=== PATIENT | male | born 1950 | race Caucasian/White ===

== ENCOUNTER → 2017-06-26 | Outpatient (CLI) | payer OTHER ==
[2017-06-26 13:26] LABS: BASO % 0.6 %; BASO ABS # 0.04 K/uL (0-0.2); COMPLETE YES; EOS % 6.3 %; HEMATOCRIT 43.2 % (42-52); IG% 0.4 %; LYMPH % 23.6 %; LYMPH ABS # 1.61 K/uL (1.2-3.4); MEAN CELL VOLUME 86.4 fL (80-100); MEAN CORPUSCULAR HGB CONC 34.7 g/dl (32-36); MEAN PLATELET VOLUME 10.5 fL (7.4-10.4); MONO % 10.1 %; PLATELET COUNT 203 K/uL (130-400); WHITE BLOOD COUNT 6.82 K/uL (4.8-10.8)
[2017-06-26 13:58] LABS: ALT/SGPT 28 U/L (12-78); BLOOD UREA NITROGEN 25 mg/dl (7-18); BUN/CREATININE RATIO 20.7 (10-20); CALCIUM 9.2 mg/dl (8.5-10.1); CARBON DIOXIDE 26 mmol/L (21-32); CHLORIDE 106 mmol/L (98-107); CHOLESTEROL 175 mg/dl (0-200); GLUCOSE 93 mg/dl (70-99); POTASSIUM 4.3 mmol/L (3.5-5.1); SODIUM 139 mmol/L (136-145); TRIGLYCERIDES 141 mg/dl (0-150); VERY LOW DENSITY LIPOPROT CALC 28 mg/dl
[2017-06-26 14:10] LABS: ALB/GLOB RATIO 0.9 (0.9-2); ALKALINE PHOSPHATASE 64 U/L (45-117); AST/SGOT 23 U/L (15-37); HDL CHOLESTEROL 44 mg/dl; LDL CHOLESTEROL CALCULATED 103 mg/dl; PROSTATE SPECIFIC ANTIGEN 0.645 ng/ml (0.000-4.000)
--- NOTE | 2017-07-06 09:41 | CODING QUERY MEDICAL NECESSITY ---
SUPPORTING DIAGNOSIS NEEDED Dr. Davenport, A supporting diagnosis is required for the test/procedure performed on this patient in order for us to be reimbursed by the patient's insurance. Please provide a supporting diagnosis for the following test/procedure listed below next to the test name along with your signature. *If there is no additional diagnosis for this patient that would support the following test/procedure please document that below next to the test/procedure. Test(s)/Procedure(s) that require a supporting diagnosis: * 33130 PSA DIAGNOSIS: DATE OF SERVICE: 06/26/17 Provider Signature: Date: Thank you See [facility] Information Management Once completed, please kindly fax back to [phone] For questions please call [phone]
== END | disposition home or self-care (01) ==
LOC: C.LABBC 10:56
PROVIDERS: ATTEND Internal Medicine
DX: Z87.09 Personal history of other diseases of the respiratory system (principal); N40.1 Benign prostatic hyperplasia with lower urinary tract symptoms; N50.9 Disorder of male genital organs, unspecified

== ENCOUNTER → 2017-11-26 | Outpatient (CLI) | payer OTHER ==
[~2017-11-26] MED LIST: FUROSEMIDE INJ 10 MG/ML 2 ML VIAL IV ONE
--- NOTE | 2017-11-26 11:27 | DIAGNOSTIC IMAGING REPORT ---
NUCLEAR MEDICINE MAG3 RENAL DIURETIC SCAN CLINICAL HISTORY: N13.30 hydronephrosis COMPARISON STUDY: No previous studies for comparison. FINDINGS: The patient was injected with 8.4 mCi of technetium 99m MAG3. The flow was relatively symmetric. Split renal function was 56.5% on the left and 43.5% of the right On the right, the time of maximal activity was 3 minutes. There is flat excretory curve. At 20 minutes, the patient was administered 20 mg of intravenous furosemide. There was no Lasix response. On the left, the time to maximal activity was 5 minutes. The time to half maximum was slightly prolonged measuring 20 minutes. There are no findings to indicate obstruction on the left. Camera images demonstrate a dilated right renal collecting system. IMPRESSION: 1. Right renal obstruction with suspected marked hydronephrosis. No Lasix response. 2. Split renal function of 56.5% on the left and 43.5% of the right Electronically signed by: Edwardo Chairez M.D. 11/26/2017 11:26 AM Dictated Date/Time: 11/26/2017 11:20 AM
== END | disposition home or self-care (01) ==
LOC: C.NUCL 09:42
PROVIDERS: ATTEND Urology
DX: N13.30 Unspecified hydronephrosis (principal)

== ENCOUNTER → 2018-01-05 | Day surgery (SDC) | payer OTHER ==
[2017-12-23 09:46] VITALS: BMI 33.0
--- NOTE | 2017-12-23 10:16 | PAT Medication Instructions ---
Service Date Dec 23, 2017. Current Home Medication List Dicyclomine Hcl (Dicyclomine Hcl), 1 CAP PO BID Fish Oil (Morrow-3), 1 CAP PO BID Naproxen (Aleve), 220 MG PO PRN Resveratrol (Resveratrol), 100 MG PO QAM [Gingko Biloba], 1 TAB PO QAM [Phosphatildaserine], 100 MG PO BID [Vitamin B12], 1 TAB PO QAM Medication Instructions For Your Scheduled Surgery -Contact your surgeon for instructions if you plan on taking: Naproxen (Aleve), 220 MG PO PRN - Hold the following medications 2 weeks prior to surgery: Fish Oil (Morrow-3), 1 CAP PO BID [Gingko Biloba], 1 TAB PO QAM [Phosphatildaserine], 100 MG PO BID Resveratrol (Resveratrol), 100 MG PO QAM - Hold the following medications the morning of surgery: Dicyclomine Hcl (Dicyclomine Hcl), 1 CAP PO BID [Vitamin B12], 1 TAB PO QAM - Take the following medications as scheduled the night before surgery: Dicyclomine Hcl (Dicyclomine Hcl), 1 CAP PO BID If you have any questions please call us at [phone] or [phone] or [phone]
--- NOTE | 2017-12-23 10:58 | DIAGNOSTIC IMAGING REPORT ---
CHEST 2 VIEWS ROUTINE CLINICAL HISTORY: Preoperative chest COMPARISON STUDY: No previous studies for comparison. FINDINGS: The cardiac and mediastinal contours are normal. There is no evidence of focal pulmonary consolidation. There is no evidence of failure. No pleural effusions are visualized.[ There is a linear area of subsegmental atelectasis/scarring within the lingula. IMPRESSION: Lingular atelectasis/scarring. Otherwise negative chest. Electronically signed by: Edwardo Chairez M.D. 12/23/2017 10:57 AM Dictated Date/Time: 12/23/2017 10:56 AM
[2017-12-23 11:00] LABS: BASO % 1.1 %; BASO ABS # 0.07 K/uL (0-0.2); EOS % 5.6 %; EOS ABS # 0.37 K/uL (0-0.5); HEMATOCRIT 41.9 % (42-52); IG# 0.01 K/uL (0.00-0.02); LYMPH ABS # 1.57 K/uL (1.2-3.4); MEAN CELL VOLUME 84.6 fL (80-100); MEAN CORPUSCULAR HEMOGLOBIN 30.3 pg (25-34); MEAN CORPUSCULAR HGB CONC 35.8 g/dl (32-36); MEAN PLATELET VOLUME 10.2 fL (7.4-10.4); MONO % 12.4 %; MONO ABS # 0.81 K/uL (0.11-0.59); NEUT % 56.7 %; NEUT ABS # 3.72 K/uL (1.4-6.5); PLATELET COUNT 184 K/uL (130-400); RED CELL DISTRIBUTION WIDTH CV 13.1 % (11.5-14.5); WHITE BLOOD COUNT 6.55 K/uL (4.8-10.8)
[2017-12-23 12:21] LABS: CALCIUM 9.6 mg/dl (8.5-10.1); CREATININE 1.06 mg/dl (0.60-1.40); POTASSIUM 4.2 mmol/L (3.5-5.1)
[~2018-01-05] VITALS: Ht 170.2 cm; Wt 97.7 kg
[~2018-01-05] MED LIST changes: +ACETAMINOPHEN 325 MG TAB PO PRN; +ATROPINE SULFATE 0.1 MG/ML 5ML SYR IV PRN; +BACITRACIN OINT 15 GM TUBE ONE; +BUPIVACAINE 0.5 % 5 MG/1 ML MPF 30ML VIAL ONE; +CEFAZOLIN 2000MG IV PUSH 15 ML IV SCH; +DEXAMETHASONE SOD INJ 4 MG/ML VIAL ONE; +DICY10CA12 PO; +EpHEDrine SULFATE 50MG/5ML SYR ONE; +EpHEDrine SULFATE INJ 50 MG/ML AMP IV PRN; +FENTANYL CITRATE INJ 50 MCG/1 ML 2 ML VIAL IV PRN; +FENTANYL CITRATE INJ 50 MCG/1 ML 2 ML VIAL ONE; -FUROSEMIDE INJ 10 MG/ML 2 ML VIAL IV ONE; +GINGKO BILOBA PO; +HYDR-5688 PO; +LACTATED RINGER'S 1000ML 1,000 ML IV SCH; +LIDOCAINE HCL 2% 2 ML VIAL (20MG/ML) ONE; +MIDAZOLAM HCL 1 MG/ML 2ML VIAL ONE; +NAPR1TAB9 PO; +OMEG10007 PO; +ONDANSETRON INJ 2 MG/ML 2 ML VIAL IV PRN; +ONDANSETRON INJ 2 MG/ML 2 ML VIAL ONE; +OXYCODONE/ACETAMINOPHEN 5-325 TAB PO PRN; +PROPOFOL IV EMULSION 10 MG/ML 20 ML VIAL IV ONE; +RESV100C PO; +SODIUM CHLORIDE 0.9% 1000ML 1,000 ML IV SCH; +VITAMIN B12 PO; +[UNRECOGNIZED DRUG - OTHER] PO
[2018-01-05 07:14] VITALS: BP 199/89; PULSE 83; TEMP 37.2; O2SAT 95; Ht 170.2 cm; Wt 97.7 kg
--- NOTE | 2018-01-05 08:32 | History & Physical Bridge Note ---
H&P Re-Evaluation Bridge Note: I have examined the patient, reviewed the History & Physical and in the interval since the performance of the History & Physical I have noted the following changes of clinical significance: No changes noted
--- NOTE | 2018-01-05 09:56 | [facility] Post Operative Brief Note ---
Immediate Operative Summary Operative Date Jan 05, 2018. Pre-Operative Diagnosis Right Hydrocele Post-Operative Diagnosis Right Hydrocele Procedure(s) Performed Right Hydrocelectomy Surgeon Dr. Landin Nursing Consultant Surgeon(s) none Estimated Blood Loss 5 ml Findings Consistent with Post-Op Diagnosis Specimens A. Right Hydrocele Sac Drains anthony Anesthesia Type General Complication(s) none Disposition Accompanied Pt To Recover: yes Disposition: Recovery Room / PACU
--- NOTE | 2018-01-05 10:05 | Discharge Instructions ---
Discharge Instructions Date of Service Jan 05, 2018. Admission Reason for Admission: Hydrocele Discharge Discharge Diagnosis / Problem: Hydrocele Discharge Goals Goal(s): Decrease discomfort, Improve function, Increase independence, Improve disease control Activity Recommendations Activity Limitations: per Instructions/Follow-up section Lifting Limitations: no more than 25 pounds (for 1-2 weeks) Exercise/Sports Limitations: gradually increase as tolerated May Resume Sexual Activity: when tolerated Shower/Bathe: tomorrow Driving or Machine Use: resume 1 day after discharge . Instructions / Follow-Up Instructions / Follow-Up Please keep your appointment for drain removal later this week. Please change the dressing around the drain as needed. Please apply bacitracin ointment to the incision 2-3 times per day for the first week of recovery Current Hospital Diet Patient's current hospital diet: Discharge Diet Recommended Diet: Regular Diet Procedures Procedures Performed: Right Hydrocelectomy Pending Studies Studies pending at discharge: no Medical Emergencies . Who to Call and When: Medical Emergencies: If at any time you feel your situation is an emergency, please call 911 immediately. . Non-Emergent Contact Non-Emergency issues call your: Urologist Call Non-Emergent contact if: you have a fever, temperature is above 101.5, your pain is not controlled, your pain is worsening . . "Provider Documentation" section prepared by Сергей Clark. . [place] Drug Monitoring Program Search Results: no issues identified
--- NOTE | 2018-01-05 10:28 | [facility] Operative Report ---
Operative Report Operative Date Jan 05, 2018. Pre-Operative Diagnosis Right Hydrocele Post-Operative Diagnosis Right Hydrocele Procedure(s) Performed Right Hydrocelectomy Surgeon Dr. Landin Road Builder Surgeon(s) none Estimated Blood Loss 5 ml Findings simple right hydrocele Specimens A. Right Hydrocele Sac Drains anthony Anesthesia Type General Complication(s) none Disposition yes Recovery Room / PACU Description of Procedure Patient was identified in the preoperative holding area, appropriate informed consents reviewed and completed and the patient was transported to the operating suite. Upon arrival he received appropriate preoperative antibiotics in the form of Ancef. Adequate general anesthesia was achieved, and he was placed in supine position where he was sterilely prepped and draped in standard fashion. A midline raphae incision of approximately 5 cm was marked on the scrotum. After incising through the skin, I carefully worked my way through dartos fascia utilizing a combination of sharp dissection and Bovie electrocautery. I skeletonized the anterior surface of the hydrocele and tunica vaginalis before delivering it through the incision. I then completed my skeletonization of tunica vaginalis with excellent hemostasis. The tunica vaginalis was incised on its anterior surface and approximately 500 cc of yellow appearing fluid was drained. I then opened the sac longitudinally and inspected internally. There were no abnormalities appreciated. I excised the redundant sac from the left and the right before oversewing the cut edge utilizing a 3-0 Vicryl suture in running fashion. After obtaining meticulous hemostasis, a Anthony drain was placed in the dependent portion of the scrotum and sutured in place utilizing the same 3-0 Vicryl suture. Dartos fascia was reapproximated using a 3-0 Vicryl. I infiltrated these tissues utilizing 0.5% Marcaine before closing the skin with vertical mattress 3-0 chromic sutures. The wound was dressed with bacitracin, fluffs, and a scrotal support. There was excellent hemostasis, and the patient tolerated the procedure extremely well. He was taken to the PACU in stable condition. I attest to the content of the Intraoperative Record and any orders documented therein. Any exceptions are noted below.
--- NOTE | 2018-01-05 10:48 | Anesthesiology Progress Note ---
Anesthesia Post Op Note Date & Time Jan 05, 2018 at 10:48 Vital Signs Pain Intensity: 4 Vital Signs Past 12 Hours Date Time Temp Pulse Resp B/P (MAP) Pulse Ox O2 Delivery O2 Flow Rate FiO2 01/05/18 10:35 71 17 155/88 94 Room Air 01/05/18 10:25 36.8 68 16 143/89 93 Room Air 01/05/18 10:15 80 16 138/77 94 Oxymask 10 01/05/18 10:06 82 16 125/83 97 Oxymask 10 01/05/18 09:59 36.2 76 16 152/79 96 Oxymask 10 01/05/18 07:14 37.2 83 20 199/89 (125) 95 Room Air Notes Mental Status: alert / awake / arousable, participated in evaluation Pt Amnestic to Procedure: Yes Nausea / Vomiting: adequately controlled Pain: adequately controlled Airway Patency, RR, SpO2: stable & adequate BP & HR: stable & adequate Hydration State: stable & adequate Anesthetic Complications: no major complications apparent
[2018-01-05 10:50] VITALS: BP 163/80; PULSE 67; TEMP 36.7; O2SAT 97
[2018-01-05 11:20] VITALS: BP 151/73; PULSE 75; O2SAT 95
[2018-01-05 11:40] VITALS: BP 161/82; PULSE 74; TEMP 36.6; O2SAT 96
== END | disposition home or self-care (01) ==
LOC: C.ACU 06:57
PROVIDERS: ATTEND Urology
DX: N43.3 Hydrocele, unspecified (principal); N40.1 Benign prostatic hyperplasia with lower urinary tract symptoms; N13.30 Unspecified hydronephrosis; M19.90 Unspecified osteoarthritis, unspecified site; E66.9 Obesity, unspecified; G47.33 Obstructive sleep apnea (adult) (pediatric); Z85.048 Personal history of other malignant neoplasm of rectum, rectosigmoid junction, and anus; Z90.89 Acquired absence of other organs; Z83.79 Family history of other diseases of the digestive system; Z82.49 Family history of ischemic heart disease and other diseases of the circulatory system; Z83.3 Family history of diabetes mellitus; Z80.41 Family history of malignant neoplasm of ovary; Z87.891 Personal history of nicotine dependence; Z88.6 Allergy status to analgesic agent

== ENCOUNTER 2019-01-31 14:56 | Observation (INO) ==
--- NOTE | 2019-01-31 15:41 | Emergency Department Note ---
History of Present Illness General Chief complaint: Chest Pain Stated complaint: CHEST/NECK PAIN PAST 5 DAYS Time Seen by Provider: 01/31/19 15:11 History of Present Illness Maximum Pain Intensity: 0 This is a 68-year-old male that presents to the emergency department via private vehicle accompanied by male with complaints of "chest/neck pain past 5 days". The patient notes that this past Thursday he was at work not exerting himself talking with people when he began with pain in the right side of the inferior neck and superior right chest. He notes that sometimes when he bends down it worsens or moves his arms but notes that it is not always reproducible nor is it predictable. He notes that it is intermittent. He also notes pain in the substernal region that is sometimes worse with palpation. He notes a very strong family history of [place], noting that his father from an [place] at age 54 and his grandfather also had similar history. He notes he has no personal history of [place] or PE. No identified medical problems. He notes that when the pain strikes it is a 4/10 and he is not really sure if it sharp or dull he notes it just hurts in that region. He has a history of rectal cancer in 1999. He denies any fevers, chills, abdominal pain. Home Medications Home Medications Medication Instructions Recorded Confirmed Type calcium polycarbophil [FiberCon] 1,250 mg PO BID 01/31/19 01/31/19 History dicyclomine 10 mg PO BID 01/31/19 01/31/19 History omega [id number]-fish oil [Medford-3] 1 cap PO BID 01/31/19 01/31/19 History Allergies Allergy/AdvReac Type Severity Reaction Status Date / Time aspirin Allergy Unknown WHITE EYES Verified 01/05/18 07:08 TURNED RED Past Med/Surg History Medical History History of rectal cancer Surgical History History of rectal surgery Family History Father , At age 54 from [place] No problems noted. Social History Feels Safe at Home: Yes Smoking Status: Former smoker Review of Systems A total of 10 systems reviewed and were otherwise negative Physical Exam Vital Signs Vital Signs - 24 hr 01/31/19 15:01 01/31/19 15:24 01/31/19 15:30 Temperature 36.8 C Temperature Source Oral Sepsis Recent Fever Within 48 Hours No Sepsis Action Taken by Nursing No Action Required Pulse Rate 67 66 72 Pulse Rate from SpO2 Sensor Respiratory Rate 18 21 20 Blood Pressure 225/112 H Blood Pressure Mean 149 Pulse Oximetry 96 Oxygen Delivery Method Room Air 01/31/19 15:40 01/31/19 15:50 01/31/19 15:51 Temperature Temperature Source Sepsis Recent Fever Within 48 Hours Sepsis Action Taken by Nursing Pulse Rate 70 65 Pulse Rate from SpO2 Sensor Respiratory Rate 16 16 Blood Pressure Blood Pressure Mean Pulse Oximetry 97 Oxygen Delivery Method Room Air 01/31/19 15:52 01/31/19 16:00 01/31/19 16:01 Temperature Temperature Source Sepsis Recent Fever Within 48 Hours Sepsis Action Taken by Nursing Pulse Rate 70 69 69 Pulse Rate from SpO2 Sensor 69 70 70 Respiratory Rate 22 16 21 Blood Pressure 168/99 H 167/91 H Blood Pressure Mean 122 116 Pulse Oximetry 96 96 93 Oxygen Delivery Method 01/31/19 16:10 01/31/19 16:20 01/31/19 16:30 Temperature Temperature Source Sepsis Recent Fever Within 48 Hours Sepsis Action Taken by Nursing Pulse Rate 68 68 66 Pulse Rate from SpO2 Sensor 69 69 67 Respiratory Rate 13 21 16 Blood Pressure Blood Pressure Mean Pulse Oximetry 96 96 96 Oxygen Delivery Method 01/31/19 16:31 01/31/19 16:40 01/31/19 16:50 Temperature Temperature Source Sepsis Recent Fever Within 48 Hours Sepsis Action Taken by Nursing Pulse Rate 69 63 66 Pulse Rate from SpO2 Sensor 67 63 66 Respiratory Rate 12 18 16 Blood Pressure 154/88 H Blood Pressure Mean 110 Pulse Oximetry 95 96 96 Oxygen Delivery Method 01/31/19 17:00 01/31/19 17:01 01/31/19 17:10 Temperature Temperature Source Sepsis Recent Fever Within 48 Hours Sepsis Action Taken by Nursing Pulse Rate 69 69 66 Pulse Rate from SpO2 Sensor 66 Respiratory Rate 19 16 22 Blood Pressure 159/102 H Blood Pressure Mean 121 Pulse Oximetry 96 Oxygen Delivery Method 01/31/19 17:20 01/31/19 17:30 01/31/19 17:31 Temperature Temperature Source Sepsis Recent Fever Within 48 Hours Sepsis Action Taken by Nursing Pulse Rate 67 68 65 Pulse Rate from SpO2 Sensor 66 66 65 Respiratory Rate 22 22 17 Blood Pressure 172/108 H Blood Pressure Mean 129 Pulse Oximetry 96 96 96 Oxygen Delivery Method 01/31/19 17:40 01/31/19 17:50 01/31/19 18:00 Temperature Temperature Source Sepsis Recent Fever Within 48 Hours Sepsis Action Taken by Nursing Pulse Rate 68 68 70 Pulse Rate from SpO2 Sensor 67 67 69 Respiratory Rate 20 23 17 Blood Pressure Blood Pressure Mean Pulse Oximetry 96 97 96 Oxygen Delivery Method 01/31/19 18:01 01/31/19 18:10 01/31/19 18:20 Temperature Temperature Source Sepsis Recent Fever Within 48 Hours Sepsis Action Taken by Nursing Pulse Rate 65 65 68 Pulse Rate from SpO2 Sensor 64 65 67 Respiratory Rate 16 20 14 Blood Pressure 168/103 H Blood Pressure Mean 124 Pulse Oximetry 96 96 95 Oxygen Delivery Method 01/31/19 18:30 01/31/19 18:31 01/31/19 18:40 Temperature Temperature Source Sepsis Recent Fever Within 48 Hours Sepsis Action Taken by Nursing Pulse Rate 63 63 61 Pulse Rate from SpO2 Sensor 63 61 62 Respiratory Rate 19 22 20 Blood Pressure 179/102 H Blood Pressure Mean 127 Pulse Oximetry 96 97 95 Oxygen Delivery Method 01/31/19 18:50 Temperature Temperature Source Sepsis Recent Fever Within 48 Hours Sepsis Action Taken by Nursing Pulse Rate 64 Pulse Rate from SpO2 Sensor 63 Respiratory Rate 20 Blood Pressure Blood Pressure Mean Pulse Oximetry 96 Oxygen Delivery Method VITAL SIGNS - Vital signs and nursing notes were reviewed. Hypertensive, afebrile. GENERAL - 68-year-old male appearing his stated age who is in no acute distress. Communicates well with provider and answers questions appropriately. SKIN - Without rashes. No meningeal or petechial rash. HEAD - NC/AT. EYES - PERRL with EOMI bilaterally. Sclera anicteric. EARS - No deformities of external structures noted on gross examination bilaterally. NOSE - Midline and without cyanosis. No epistaxis or purulent drainage noted. MOUTH/OROPHARYNX - Without perioral cyanosis. NECK - Neck with FROM. Supple to palpation. No lymphadenopathy noted. No nuchal rigidity. LUNGS - Chest wall symmetric without accessory muscle use, intercostals retractions, or central cyanosis. Normal vesicular breath sounds CTA B/L. No wheezes, rales, or rhonchi appreciated. CARDIAC - RRR with S1/S2. No murmur, rubs, or gallops appreciated. ABDOMEN - Abdominal contour normal without pulsations or visible masses. BS normoactive all four quadrants. No tenderness, palpable masses, hepatosplenomegaly, or ascites noted. EXTREMITIES - No clubbing or peripheral cyanosis. No pretibial edema present. +5/5 strength noted in UE/LE bilaterally. NEUROLOGIC - Cranial nerves II through XII grossly intact. Sensory intact to light touch throughout. PSYCH - A&Ox3 and cooperates fully with examiner. Pt is very pleasant and interacts well with examiner. Medical Decision Making Laboratory Data Result diagrams: 01/31/19 15:57 01/31/19 15:57 Lab Results 01/31/19 01/31/19 01/31/19 Range/Units 15:57 15:57 15:57 WBC 4.91 (4.8-10.8) K/uL RBC 4.96 (4.7-6.1) M/uL Hgb 14.8 (14.0-18.0) g/dL Hct 42.3 (42-52) % MCV 85.3 (80-100) fL MCH 29.8 (25-34) pg MCHC 35.0 (32-36) g/dL RDW Std Deviation 40.8 (36.4-46.3) fL RDW Coeff of Rosalba 13.2 (11.5-14.5) % Plt Count 172 (130-400) K/uL MPV 10.3 (7.4-10.4) fL Immature Gran % (Auto) 0.2 % Neut % (Auto) 47.1 % Lymph % (Auto) 24.0 % [place] % (Auto) 22.4 % Eos % (Auto) 5.5 % Baso % (Auto) 0.8 % Immature Gran # (Auto) 0.01 (0.00-0.02) K/uL Neut # (Auto) 2.31 (1.4-6.5) K/uL Lymph # (Auto) 1.18 L (1.2-3.4) K/uL [place] # (Auto) 1.10 H (0.11-0.59) K/uL Eos # (Auto) 0.27 (0-0.5) K/uL Baso # (Auto) 0.04 (0-0.2) K/uL PT 10.8 (9.0-12.0) Seconds INR 1.1 (0.9-1.1) APTT 26.8 (21.0-31.0) Seconds PTT Ratio 1.0 Sodium 135 L (136-145) mmol/L Potassium 3.7 (3.5-5.1) mmol/L Chloride 107 (98-107) mmol/L Carbon Dioxide 25 (21-32) mmol/L Anion Gap 3.0 (3-11) BUN 21 H (7-18) mg/dl Creatinine 1.01 (0.6-1.4) mg/dl Est Cr Clr Drug Dosing 80.9 ml/min Est GFR ( Amer) 88.2 Est GFR (Non-Af Amer) 76.1 BUN/Creatinine Ratio 21.0 H (10-20) Glucose 87 (70-99) mg/dl Calcium 8.8 (8.5-10.1) mg/dl Magnesium 2.0 (1.8-2.4) mg/dl Total Bilirubin 0.4 (0.2-1) mg/dl AST 32 (15-37) U/L ALT 59 (12-78) U/L Alkaline Phosphatase 72 (45-117) U/L Troponin I < 0.015 (0-0.045) ng/ml Total Protein 8.2 (6.4-8.2) gm/dl Albumin 3.5 (3.4-5.0) gm/dl Globulin 4.7 H (2.5-4.0) gm/dl Albumin/Globulin Ratio 0.7 L (0.9-2) Lipase 116 (73-393) U/L TSH 1.600 (0.300-4.500) uIu/ml Urine Color Urine Appearance (Clear) Urine pH (4.5-7.5) Ur Specific Leakey (1.000-1.030) Urine Protein (Negative) Urine Glucose (UA) (Negative) Urine Ketones (Negative) Urine Blood (Negative) Urine Nitrite (Negative) Urine Bilirubin (Negative) Urine Urobilinogen (Negative) Ur Leukocyte Esterase (Negative) Urine WBC (Auto) (0-5) /hpf Urine RBC (Auto) (0-4) /hpf U Hyaline Cast (Auto) (0-5) /lpf U Epithel Cells (Auto) (0-5) /lpf Urine Bacteria (Auto) (Negative) 01/31/19 Range/Units 15:57 WBC (4.8-10.8) K/uL RBC (4.7-6.1) M/uL Hgb (14.0-18.0) g/dL Hct (42-52) % MCV (80-100) fL MCH (25-34) pg MCHC (32-36) g/dL RDW Std Deviation (36.4-46.3) fL RDW Coeff of Rosalba (11.5-14.5) % Plt Count (130-400) K/uL MPV (7.4-10.4) fL Immature Gran % (Auto) % Neut % (Auto) % Lymph % (Auto) % [place] % (Auto) % Eos % (Auto) % Baso % (Auto) % Immature Gran # (Auto) (0.00-0.02) K/uL Neut # (Auto) (1.4-6.5) K/uL Lymph # (Auto) (1.2-3.4) K/uL [place] # (Auto) (0.11-0.59) K/uL Eos # (Auto) (0-0.5) K/uL Baso # (Auto) (0-0.2) K/uL PT (9.0-12.0) Seconds INR (0.9-1.1) APTT (21.0-31.0) Seconds PTT Ratio Sodium (136-145) mmol/L Potassium (3.5-5.1) mmol/L Chloride (98-107) mmol/L Carbon Dioxide (21-32) mmol/L Anion Gap (3-11) BUN (7-18) mg/dl Creatinine (0.6-1.4) mg/dl Est Cr Clr Drug Dosing ml/min Est GFR ( Amer) Est GFR (Non-Af Amer) BUN/Creatinine Ratio (10-20) Glucose (70-99) mg/dl Calcium (8.5-10.1) mg/dl Magnesium (1.8-2.4) mg/dl Total Bilirubin (0.2-1) mg/dl AST (15-37) U/L ALT (12-78) U/L Alkaline Phosphatase (45-117) U/L Troponin I (0-0.045) ng/ml Total Protein (6.4-8.2) gm/dl Albumin (3.4-5.0) gm/dl Globulin (2.5-4.0) gm/dl Albumin/Globulin Ratio (0.9-2) Lipase (73-393) U/L TSH (0.300-4.500) uIu/ml Urine Color Yellow Urine Appearance Clear (Clear) Urine pH 5.0 (4.5-7.5) Ur Specific [place]ake[place] 1.022 (1.000-1.030) Urine Protein 2+ H (Negative) Urine Glucose (UA) Negative (Negative) Urine Ketones Negative (Negative) Urine Blood Negative (Negative) Urine Nitrite Negative (Negative) Urine Bilirubin Negative (Negative) Urine Urobilinogen Negative (Negative) Ur Leukocyte Esterase Negative (Negative) Urine WBC (Auto) 1-5 (0-5) /hpf Urine RBC (Auto) 0-4 (0-4) /hpf U Hyaline Cast (Auto) 1-5 (0-5) /lpf U Epithel Cells (Auto) 0-5 (0-5) /lpf Urine Bacteria (Auto) Negative (Negative) Imaging Data Radiologist's Impression: XR chest 1V portable HISTORY: 68 years-old Male chest pain acute atypical chest pain COMPARISON: Chest radiograph 12/23/2017 TECHNIQUE: Portable AP view of the chest FINDINGS: Cardiac mediastinal and hilar silhouettes are within normal limits. Linear subsegmental atelectasis/scarring about the lateral left midlung. Calcification of the thoracic aortic arch. There is no pneumothorax, pleural effusion, focal airspace consolidation or overt pulmonary edema. Degenerative changes are seen about the shoulders and spine. IMPRESSION: No acute process. The above report was generated using voice recognition software. It may contain grammatical, syntax or spelling errors. Electronically signed by: Kwame Mcneill M.D. 01/31/2019 3:52 PM [facility] Narrative Patient was seen and evaluated as above in room B9. Review was performed of nursing notes and vital signs. After obtaining a thorough history and physical examination the above work up was performed. He presents to us today with chest/right-sided neck pain x5 days. Patient has a heart score of 4. This is based upon presentation, age, and other risk factors. His bedside EKG reveals sinus rhythm with first-degree AV block rate of 62 bpm. No evidence of [place] on this exam. The patient did have a bedside chest x-ray which was also negative as above. Patient initial troponin was negative. CBC reveals no leukocytosis or concerning anemia. No emergent metabolic abnormality other than slight dehydration evident by BUN at 21. Urinalysis reveals 2+ protein. I would note the patient was extremely hypertensive on his arrival but this began to improve on its own. The patient has no neurovascular deficit. The pain is reproducible times in the substernal region but I am concerned about the radiation towards the neck. Although this could certainly be pleuritic/musculoskeletal nature given his age, family history, risk factors and no recent cardiac work-up believe this may be warranted to be done in the inpatient setting. I discussed this with the patient as well as attending physician and the hospitalist. Please refer to further documentation regarding his stay. Case was discussed with the attending physician. I attest that I have personally reviewed the patient medication list. I attest that I have reviewed the patient's blood pressure and it was found to be elevated In the evaluation and treatment of this patient, the following differential diagnoses were considered: [place], ASC, Dysrhythmia, Angina, Mediastinitis, GERD, Esophagitis, PE, Pneumonia, Bronchitis, Costochondritis, Rib Fracture, Zoster, among others Impression & Plan Chest pain Discharge Plan Visit Data Chief Complaint: Chest Pain Stated Complaint: CHEST/NECK PAIN PAST 5 DAYS ED Provider: Beto Mcgregor ED Midlevel Provider: Carmelo Delong Discharge Problem: Chest pain Patient Disposition: Admitted As Inpatient Condition: Good Forms Stand Alone Forms: Call Back Authorization, [facility] Prescriptions Prescriptions: No Action dicyclomine 10 mg Capsule 10 mg PO BID RF: 0 [place]ford-3 350 mg-235 mg- 90 mg-597 mg Capsule,Delayed Release(Dr/Ec) 1 cap PO BID RF: 0 calcium polycarbophil [FiberCon] 625 mg Tablet 1,250 mg PO BID RF: 0 Referrals Referrals: Cortez Davenport MD [Primary Care Provider] -
--- NOTE | 2019-01-31 15:54 | XRay Report ---
XR chest 1V portable HISTORY: 68 years-old Male chest pain acute atypical chest pain COMPARISON: Chest radiograph 12/23/2017 TECHNIQUE: Portable AP view of the chest FINDINGS: Cardiac mediastinal and hilar silhouettes are within normal limits. Linear subsegmental atelectasis/s carring about the lateral left midlung. Calcification of the thoracic aortic arch. There is no pneumo thorax, pleural effusion, focal airspace consolidation or overt pulmonary edema. Degenerative changes are seen about the shoulders and spine. IMPRESSION: No acute process. The above report was generated using voice recognition software. It may contain grammatical, syntax o r spelling errors. Electronically signed by: Kwame Mcneill M.D. 01/31/2019 3:52 PM
[2019-01-31 16:10] LABS: Basophils # (auto) 0.04 K/uL (0-0.2); Basophils % (auto) 0.8 %; Eosinophils # (auto) 0.27 K/uL (0-0.5); Eosinophils % (auto) 5.5 %; Hematocrit (blood only) 42.3 % (42-52); Hemoglobin 14.8 g/dL (14.0-18.0); Immature Granulocytes # (auto) 0.01 K/uL (0.00-0.02); Immature Granulocytes % (auto) 0.2 %; Lymphocytes # (auto) 1.18 K/uL (1.2-3.4); Mean Corpuscular Volume 85.3 fL (80-100); Mean Platelet Volume 10.3 fL (7.4-10.4); Monocytes % (auto) 22.4 %; Neutrophils # (auto) 2.31 K/uL (1.4-6.5); Neutrophils % (auto) 47.1 %; Platelet Count 172 K/uL (130-400); RDW Coefficient of Variation 13.2 % (11.5-14.5); RDW Standard Deviation 40.8 fL (36.4-46.3); Red Blood Count 4.96 M/uL (4.7-6.1); White Blood Count 4.91 K/uL (4.8-10.8)
[2019-01-31 16:12] LABS: Appearance Urine Clear (Clear); Bacteria Urine Automated Negative (Negative); Bilirubin Urine Negative (Negative); Blood Urine Negative (Negative); Color Urine Yellow; Epithelial Cell Urine Auto 0-5 /lpf (0-5); Glucose Urine UA Negative (Negative); Ketones Urine Negative (Negative); Leukocyte Esterase Urine Negative (Negative); Nitrite Urine Negative (Negative); Protein Urine 2+ (Negative); RBC Urine Automated 0-4 /hpf (0-4); Specific Gravity Urine 1.022 (1.000-1.030); Urobilinogen Urine Negative (Negative)
[2019-01-31 16:20] LABS: INR 1.1 (0.9-1.1); Partial Thromboplastin Time 26.8 Seconds (21.0-31.0); Prothrombin Time 10.8 Seconds (9.0-12.0)
[2019-01-31 16:26] LABS: Alanine Aminotransferase 59 U/L (12-78); Albumin Level 3.5 gm/dl (3.4-5.0); Aspartate Aminotransferase 32 U/L (15-37); Blood Urea Nitrogen 21 mg/dl (7-18); Calcium 8.8 mg/dl (8.5-10.1); Carbon Dioxide 25 mmol/L (21-32); Chloride 107 mmol/L (98-107); Creatinine Clr Calc Pharmacy 80.9 ml/min; Est GFR (African American) 88.2; Est GFR (Non-African American) 76.1; Glucose 87 mg/dl (70-99); Potassium 3.7 mmol/L (3.5-5.1); Sodium 135 mmol/L (136-145)
[2019-01-31 16:39] LABS: Albumin Globulin Ratio 0.7 (0.9-2); Alkaline Phosphatase 72 U/L (45-117); Bilirubin,Total 0.4 mg/dl (0.2-1); Globulin 4.7 gm/dl (2.5-4.0); Total Protein 8.2 gm/dl (6.4-8.2); Troponin I < 0.015 ng/ml (0-0.045)
--- NOTE | 2019-01-31 18:09 | History & Physical Report ---
Date of Service January 31, 2019 Assessment & Plan (1) Chest pain: Heart score of 4, making him moderate risk; however, his story is very atypical and doesn't sound like unstable angina. - Trend troponins and EKGs - Stress test in the AM if troponins and EKGs remain negative - Telemetry (2) IBS (irritable bowel syndrome): After his rectal surgery for rectal cancer. - Continue home meds (3) DVT prophylaxis: SCDs - Low risk per admission calculator History of Present Illness Primary Care Provider: Cortez Davenport MD 68-year-old male with a history of irritable bowel syndrome presents with chest pain. Chest pain is been going on for 4-5 days. He reports the pain is in the right neck with some radiation into the right substernal area. He reports the pain is a sharp pain and lasts for approximately 30 minutes at a time and resolves without any intervention. He denies taking any Tylenol or specific pain medication for the pain; however, he has been taking the naproxen for his knee pain which she reports is not helped or hurt the pain in his neck. He reports some lightheadedness and dizziness with the pain, and also notes some shortness of breath when he was walking but also having the neck pain, but the majority of the time he has no associated symptoms with the pain. At present the pain is a 2/10. He denies any prior cardiac issues including any OR or stent. He does have a father who had an OR in his early 50s. Allergies Allergy/AdvReac Type Severity Reaction Status Date / Time aspirin Allergy Unknown WHITE EYES Verified 01/05/18 07:08 TURNED RED Home Medications Home Medications Medication Instructions Recorded Confirmed Type calcium polycarbophil [FiberCon] 1,250 mg PO BID 01/31/19 01/31/19 History dicyclomine 10 mg PO BID 01/31/19 01/31/19 History omega 9-onp-bdw-fish oil [[place]-3] 1 cap PO BID 01/31/19 01/31/19 History Past Med/Surg History Medical History History of rectal cancer Surgical History History of rectal surgery Family History Father , At age 54 from OR No problems noted. Social History Feels Safe at Home: Yes Smoking Status: Former smoker Review of Systems Constitutional: no fever, no chills and no sweats Eyes: no diplopia Ear, Nose, Mouth, Throat: no ear trauma, no nasal discharge and no dental pain Respiratory: no cough, no chest congestion and no dyspnea Cardiovascular: + chest pain, + radiating jaw, neck or arm pain and + dyspnea; no dyspnea on exertion, no palpitations and no syncope Gastrointestinal: no abdominal pain, no belching, no constipation, no diarrhea/loose stools, no blood in stools and no melena Musculoskeletal: no back pain, no joint pain and no muscle weakness Integumentary: no rash, no skin ulcer and no erythema Neurologic: no generalized weakness, no loss of sensation, no numbness and no paresthesia Psychiatric: no depression and no anxiety Endocrine: no fatigue, no polydipsia and no polyphagia Physical Exam Constitutional: WD/WN, vitals as above Eyes: EOM intact bilaterally; no conjunctival abnormality ENMT: external ear and nose normal, oropharynx normal Neck: trachea midline, no thyromegaly normal visual inspection Respiratory: normal respiratory effort, lungs clear to auscultation no respiratory distress Cardiovascular: RRR, no murmur, no edema Gastrointestinal (Abdomen): Inspection/Auscultation: abdomen normal to inspection; abdomen not distended Musculoskeletal: no cyanosis or clubbing, extremities motor strength 5/5 Skin: no rashes, warm and dry Neurologic: moves all extremities and awake Psychiatric: Orientation: alert, oriented to person and cooperative Results & Data Vital Signs (Past 12 Hours) Vital Signs Temp Pulse Resp BP Pulse Ox 01/31/19 17:10 66 22 96 01/31/19 17:01 69 16 159/102 H 01/31/19 17:00 69 19 01/31/19 16:50 66 16 96 01/31/19 16:40 63 18 96 01/31/19 16:31 69 12 154/88 H 95 01/31/19 16:30 66 16 96 01/31/19 16:20 68 21 96 01/31/19 16:10 68 13 96 01/31/19 16:01 69 21 167/91 H 93 01/31/19 16:00 69 16 96 01/31/19 15:52 70 22 168/99 H 96 01/31/19 15:51 97 01/31/19 15:50 65 16 01/31/19 15:40 70 16 01/31/19 15:30 72 20 01/31/19 15:24 66 21 01/31/19 15:01 36.8 C 67 18 225/112 H 96
--- NOTE | 2019-01-31 19:29 | Emergency Department Note ---
Entered by Wang Cristobal acting as a scribe for Beto Mcgregor MD ED Visit Note The patient was seen and examined with Carmelo REDDING, [facility] Emergency Department Advanced Logging Supervisor. We discussed the case and treatments ordered, reviewed the results, and determine the disposition. Please refer to the PA's note for additional details. I have been directly involved with the management and disposition as well as independently evaluated the patient as documentation in this note. The scribe's documentation has been prepared under my direction and personally reviewed by me in its entirety. I confirm that the note above accurately reflects all work, treatment, procedures, and medical decision making performed by me.
[2019-01-31] MEDS ORDERED: ACETAMINOPHEN 325 MG TAB PO PRN (20:17)
[2019-01-31] MEDS: DICYCLOMINE HCL 10 MG CAP PO SCH (21:20)
[2019-01-31] MEDS: CALCIUM POLYCARBOPHIL 625MG TAB PO SCH (21:20)
[2019-01-31] MEDS: OMEGA-3 (PURIFIED FISH OIL) 1 GM CAP PO SCH (21:21)
[2019-01-31] MEDS: HydrALAZINE HCL 20 MG/ML VIAL IV PRN (23:05)
--- OUTSIDE RECORDS SUMMARY | 2019-01-31 23:31 | External Medical Summary | Continuity of Care Document ---
:1950 Author Name Tristen Barrientos, Provider Address Unavailable Unavailable , Care Team Providers Name Role Phone Cortez Davenport [email or web address] Cortez Davenport M.D. Unavailable Unavailable Unavailable Unavailable Unavailable Problems Fecal incontinence (787.60) (R15.9) BMI 35.0-35.9,adult (V85.35) (Z68.35) Elevated blood pressure reading without diagnosis of hypertension (796.2) (R03.0) MCKINLEY (obstructive sleep apnea) (327.23) (G47.33) Low back pain (724.2) (M54.5) Chronic fatigue syndrome (780.71) (R53.82) Gout (274.9) (M10.9) Hydronephrosis (591) (N13.30) Enlarged prostate with lower urinary tract symptoms (LUTS) ( 600.01) (N40.1) Nocturia (788.43) (R35.1) Allergies and Adverse Reactions Aspirin TABS (Allergy) Medications predniSONE 20 MG Oral Tablet; TAKE 1 TABLET TWICE DAILY. Iliana Skelton Start: 22-Oct-2018 Quantity: 6 Refills: 0 Vitamin B-12 1000 MCG Oral Tablet; TAKE 1 TABLET DAILY DI RECTED. Quantity: 90 Refills: 3 [place] 3 1000 MG Oral Capsule; Take 1 capsule twice daily Refills: 0 Dicyclomine HCl - 10 MG Oral Capsule; TAKE 1 CAPSULE Daily Start: 10-Aug-2017 Refills: 0 Procedures Total PSA Date: 25-Jan-2019 History of Colonoscopy (Fiberoptic) Stat us: Completed History of Appendectomy Status: Complete d History of Colostomy Status: Completed History of Partial Colectomy Status: Com pleted Immunizations Immunizations not documented Family History Mother Family history of gallbladder disease (V18.59) (Z83.79) Stat us: Active Father Family history of myocardial infarction (V17.3) (Z82.49) Sta tus: Active Family history of cardiac disorder (V17.49) (Z82.49) Status: Active Grandfather Family history of cardiac disorder (V17.49) (Z82.49) Status: Active Grandmother Family history of diabetes mellitus (V18.0) (Z83.3) Status: Active aunt Family history of Ovarian cancer (183.0) (C56.9) Status: Act refugio Social History - Smoking Status Former smoker Plan of Treatment Planned Encounters Appointment; Cortez Davenport M.D. Start: 28-Mar-2019 7:45 Re quest Planned Observations Planned Goals not documented Results In-House UA (Urology) (Pending) Laboratory: In House 25-Jan-2019 11:02 VOID, CC, CATH CC Turbid, Clear, Hazy Clear Gluc 0 Prot +2 Nitrate 0 Leuk 0 Blood MODERATE pH 5.0 MICROSCOPIC RARE WBC'S X-Ray Chest 1 View Portable (Pending) [facility]: [facility] 31-Jan-2019 15:51 X-Ray Chest 1 VW Portable (CXR1P) [facility], [place] [phone] XRay Report Aldair t: JEANETTE NOVOA Ayla Admit Date: MR#: [id number] Address1: [address] [place] [address] Acct ID:[id number] Address 2: Date: 1950 [facility] Zip: [place]NAD[place] [phone] Age: 68 Location : ED Sex: M Room/B ed: Att Phy: Diagn osis: CHEST/NECK PAIN PAST 5 DAYS Oralia Phy: Cortez Davenport MD Se rvice Date: Fam P hy: Interpreting Phy: Tuan garcia her Admit Phy: Orde ring Phy: Carmelo Delong PATiffanyC cc: XR chest 1V portable HISTORY: 68 years-old Male chest pain a cute atypical chest pain COMPARISON: [facility] radiograph 12/23/2017 TECHNIQUE: Por table AP view of the chest FINDINGS: Cardiac mediastinal and hilar silhouette s are within normal limits. Linear subsegmenta l atelectasis/scarring about the lateral l eft midlung. Calcification of the thoracic a ortic arch. There is no pneumothorax, pleural effusion, focal airspace consolidation o r overt pulmonary edema. Degenerative cabral ges are seen about the shoulders and spine. IMPRESSION: No acute process. The above report was generated using voice recognition software. It may contain grammatical, syntaxor spelling errors. Electronically signed by: Kwame Mcneill M.D. 01/31/2019 3:52 PM Dictated: 01/31/19 1551 Transcrib ed: 01/31/19 1551 Encounters Appointment; Lázaro Landin M.D. 25-Jan-2019 10:20 Encounter Diagnosis: Problem not documented Appointment; Cortez Davenport M.D. 15-Sep-2018 8:30 Encounter Diagnosis: Problem not documented Appointment; Cortez Davenport M.D. 18-Feb-2018 11:30 Encounter Diagnosis: Problem not documented Appointment; Lázaro Landin M.D. 20-Jan-2018 10:10 Encounter Diagnosis: Problem not documented Appointment; Urology, Nursing Station 08-Jan-2018 10:00 Encounter Diagnosis: Problem not documented Appointment; Lázaro Landin M.D. 05-Jan-2018 9:00 Encounter Diagnosis: Problem not documented Appointment; Lázaro Landin M.D. 10-Dec-2017 11:40 Encounter Diagnosis: Problem not documented Appointment; Lázaro Landin M.D. 26-Aug-2017 11:00 Encounter Diagnosis: Problem not documented Appointment; Cortez Davenport M.D. 10-Aug-2017 11:45 Encounter Diagnosis: Problem not documented Appointment; Cortez Davenport M.D. 26-Jun-2017 10:00 Encounter Diagnosis: Problem not documented Appointment; Cortez Davenport M.D. 28-Mar-2019 7:45 Encounter Diagnosis: Problem not documented
[2019-02-01] MEDS: CALCIUM POLYCARBOPHIL 625MG TAB PO SCH (07:44)
[2019-02-01] MEDS: DICYCLOMINE HCL 10 MG CAP PO SCH (07:44)
[2019-02-01] MEDS: OMEGA-3 (PURIFIED FISH OIL) 1 GM CAP PO SCH (07:44)
[2019-02-01] MEDS: HydrALAZINE HCL 20 MG/ML VIAL IV PRN (07:44)
[2019-02-01] MEDS ORDERED: PERFLUTREN LIPID MICROSPHERE (DEFINITY) IV ONE (09:01)
[2019-02-01] MEDS ORDERED: HydrALAZINE HCL 20 MG/ML VIAL IV ONE (11:59)
[2019-02-01] MEDS ORDERED: LISINOPRIL 10 MG TAB PO SCH (12:30)
--- NOTE | 2019-02-01 16:03 | Discharge Summary ---
Date of Service February 01, 2019 Admission HPI Per Admitting Provider 68-year-old male with a history of irritable bowel syndrome presents with chest pain. Chest pain is been going on for 4-5 days. He reports the pain is in the right neck with some radiation into the right substernal area. He reports the pain is a sharp pain and lasts for approximately 30 minutes at a time and resolves without any intervention. He denies taking any Tylenol or specific pain medication for the pain; however, he has been taking the naproxen for his knee pain which she reports is not helped or hurt the pain in his neck. He reports some lightheadedness and dizziness with the pain, and also notes some shortness of breath when he was walking but also having the neck pain, but the majority of the time he has no associated symptoms with the pain. At present the pain is a 2/10. He denies any prior cardiac issues including any LA or stent. He does have a father who had an LA in his early 50s. Principal Diagnosis Chest pain Discharge Exam Constitutional WD/WN, vitals as above Eyes EOM intact bilaterally; no conjunctival abnormality ENMT external ear and nose normal, oropharynx normal Neck trachea midline, no thyromegaly normal visual inspection Respiratory normal respiratory effort, lungs clear to auscultation no respiratory distress Cardiovascular RRR, no murmur, no edema Gastrointestinal (Abdomen) Inspection/Auscultation: abdomen normal to inspection; abdomen not distended Musculoskeletal no cyanosis or clubbing, extremities motor strength 5/5 Skin no rashes, warm and dry Neurologic moves all extremities and awake Psychiatric Orientation: alert, oriented to person and cooperative Discharge Data Allergies Allergy/AdvReac Type Severity Reaction Status Date / Time aspirin Allergy Unknown WHITE EYES Verified 01/05/18 07:08 TURNED RED Consultations 01/31/19 17:03 ED Decision to Admit Stat Hospital Course (1) Chest pain: Heart score of 4, making him moderate risk; however, his story is very atypical and doesn't sound like unstable angina. - Troponins and EKGs were normal - Stress test on 02/01 was negative. Right neck/chest pain had resolved. Follow up with PCP if it recurs. (2) Hypertension: Had hypertensive response to the stress test with BP up to 230/110. Reports he normally is in the 130/60 range at his PCP's office. - Received hydralazine 15mg IV with improvement. - Discharged on lisinopril 10mg daily with recommendation to buy a BP cuff at the pharmacy and check a few times a week. Take results to his PCP. (3) IBS (irritable bowel syndrome): After his rectal surgery for rectal cancer. - Continued home meds Total Time Total Time Spent Total Time Spent (In Minutes): 20 Total Time Includes: Examination of the Patient Discharge Plan Discharge Items Patient Disposition: Home - Self-Care Reason For Visit: CHEST PAIN Discharge Diagnosis: Chest pain; likely musculoskeletal Condition: Good Discharge Goals: Decrease discomfort and Diagnostic testing Activity: Resume your previous activity Non-emergency contact: Primary Care Provider Call non-emergency contact if: you have any medication questions, your symptoms worsen and your pain is not controlled Follow-up/Referrals: Cortez Davenport MD [Primary Care Provider] - 02/09/19 10:40 am (Please, follow up at Dr. Cortez Davenport's office in [place] with his associate, Jin AGUIRRE, on ThursdayFebruary 09 at 10:40 am. *If you need to change this appointment, call the office at [phone].) Diet: Regular Addtl Provider Instructions: Mr. Kennedy, You were admitted to the hospital with chest pain that was mostly in the right neck area. We did blood tests called a "troponin" that showed you did not have a heart attack. We did a stress test which did not show any areas of poor blood flow to the heart. Additionally, you have a good squeeze of the heart. Your blood pressure was high after the test, and we gave you medication to bring it down. I am starting you on a low-dose blood pressure medication. You reported that it is not elevated as an outpatient, so this may just be from the stress of being in the hospital. Please get a blood pressure cuff and take your blood pressure two to three times a week and take those measurements to Dr. Davenport's office for your next visit. For your neck pain, it had gone away by the time you were discharged. If it comes back, try some over the counter Tylenol and heating pads on the neck. If the pain continues, please call your PCP's office. Prescriptions: New lisinopril 10 mg tablet 10 mg PO DAILY Qty: 30 RF: 0 Continued dicyclomine 10 mg Capsule 10 mg PO BID RF: 0 [place]-3 350 mg-235 mg- 90 mg-597 mg Capsule,Delayed Release(Dr/Ec) 1 cap PO BID RF: 0 calcium polycarbophil [FiberCon] 625 mg Tablet 1,250 mg PO BID RF: 0 Stand-Alone Forms: Call Back Authorization, [facility]/Other Patient Handouts: Lisinopril Oral tablet Discharge Orders: Discharge Order (Routine); Ordered 02/01/19 Ordered By: Selwyn Kennedy Admission Data Admit Date/Time: 01/31/19 18:03 Attending Provider: Selwyn Kennedy Admit Provider: Selwyn Kennedy Primary Care Provider: Cortez Davenport Other Providers: Erasmo Calhoun Service: Telemetry Medical Other Interventions: Discharge Summary Assessment (RN) Last Done: 02/01/19 14:37 DC Date/Time DO NOT enter until pt leaves facility: 02/01/19 15:31
--- NOTE | 2019-02-16 10:44 | Coding Query ---
A supporting diagnosis is required for the test/procedure performed on this patient in order for us to be reimbursed by the patient's insurance. Please provide a supporting diagnosis for the following test/procedure listed below next to the test name along with your signature. *If there is no additional diagnosis for this patient that would support the following test/procedure please document that below next to the test/procedure. Test(s)/Procedure(s) that require a supporting diagnosis: * EXERCISE STRESS ECHO DIAGNOSIS: Chest pain Provider Signature: Date: Thank you Rylie Celeste [employer] Information Management Once completed, please kindly fax back to [phone] For questions please call [phone] - I did try to call this number several times, but it always went straight to voicemail. OG
== END 2019-02-01 15:31 | disposition home or self-care (01) ==
LOC: ED 14:56 → 2N 14:56

== ENCOUNTER 2020-11-20 06:04 | Inpatient (IN) ==
--- NOTE | 2020-11-14 14:19 | Anesthesiology Consultation ---
Date of Service November 14, 2020 Assessment & Plan (1) Encounter for pre-operative examination: Case was scheduled for 09/11/20, patient seen by Amalia Chacon at [facility] 08/28/20. Case R/S due to covid-19 surge capacity protocol. COVID Status: As of 11/05 nurse assessment, patient denies travel to endemic area, known exposure/sick contacts, or symptoms of COVID19. Preoperative COVID19 testing completed on 11/13, results NEGATIVE. Seen by PCP 11/09, chronic problems and upcoming surgery discussed, no changes made. Chart Review Chart Review: Acceptable Risk for Surgery History Surgery Operation Date: 11/20/20 07:30 Proposed Procedures p Right Dismembered Laparoscopic Robotic Assisted Pyeloplasty - Сергей Landin MD Height/Weight Height: 5 ft 7 in Weight: 106.141 kg Allergies Allergy/AdvReac Type Severity Reaction Status Date / Time aspirin Allergy Mild eye redness Verified 11/12/20 08:43 Medications Home Medications Medication Instructions Recorded Confirmed Last Taken calcium polycarbophil [FiberCon] 1,250 mg PO BID 01/31/19 11/12/20 Unknown amlodipine 5 mg PO QAM 08/10/20 11/12/20 Unknown lisinopril 40 mg PO QAM 08/10/20 11/12/20 Unknown dicyclomine 10 mg PO QAM 08/28/20 11/12/20 Unknown Past Medical History Medical History (Updated 11/14/20 @ 14:18 by Earl Martinez) Fecal incontinence 2/2 surgical intervention for rectal cancer in 1999. Hearing deficit B/L RIVERA History of rectal cancer dx 1999; treated surgically + chemo/radiation Hx of gout Hydronephrosis Hypertension IBS (irritable bowel syndrome) Obesity Obstruction, urethra MCKINLEY (obstructive sleep apnea) UNTREATED, per PCP patient continues to decline CPAP. Osteoarthritis Past Family History Family History Father Cardiac disorder Myocardial infarction Mother Gallbladder disease Grandfather Cardiac disorder Grandmother Diabetes Aunt Ovarian cancer Grandmother (Maternal) No problems noted. Grandmother (Paternal) Family history of diabetes mellitus Other No family history of adverse response to anesthesia Denies family history of Prostate cancer Breast cancer Colorectal cancer Past Surgical History Surgical History History of colonoscopy History of ileostomy History of rectal surgery s/p neoadjuvant chemoradiation with 55.8Gy and 5 FU completed on 09/10/2000 s/p low anterior resection and diverting ileostomy 10/27/2000 History of reversal of ileostomy Status post PICC central line placement removed Social History Smoking Status: Former smoker tobacco type: cigarettes and smokeless tobacco Do You Dip or Chew Tobacco: No Smoking End Date: 20 YRS AGO Hx Alcohol Use: Yes Alcohol type: beer alcohol intake frequency: a few times a week Hx Substance Use: No substance use type: does not use Testing Laboratory Results 11/13/20 WBC: 7.12 H/H: 14.5/42.6 PLATELETS: 199 SODIUM: 142 POTASSIUM: 3.9 CHLORIDE: 109 CO2: 29 BUN: 16 CREATININE: 1.05 GLUCOSE: 98 Electrocardiogram Date: 08/28/20 Sinus bradycardia at 57bpm with 1st degree A-V block. Possible Septal infarct. When compared with ECG of 01-FEB-2019 06:34, Nonspecific T wave abnormality no longer evident in Inferior leads. Other Testing Chest X-Ray Date: 08/28/20 FINDINGS: The cardiac and mediastinal contours are normal. There is no evidence of focal pulmonary consolidation. There is no evidence of failure. No pleural effusions are visualized.[There are stable areas of linear subsegmental atelectasis/scarring at the lung bases. IMPRESSION: No active disease in the chest. Stress Test Date: 02/01/19 Type: exercise Normal stress echo at 7 METS. 85% max. Heart rate. No exercise-induced chest pain. No significant EKG changes. Baseline echo with normal LV systolic function and mild LVH. EF 65 to 70%. No significant valvular disease.
[~2020-11-20 06:04] MED LIST changes: -ACETAMINOPHEN 325 MG TAB PO PRN; -ATROPINE SULFATE 0.1 MG/ML 5ML SYR IV PRN; -BACITRACIN OINT 15 GM TUBE ONE; -BUPIVACAINE 0.5 % 5 MG/1 ML MPF 30ML VIAL ONE; -CEFAZOLIN 2000MG IV PUSH 15 ML IV SCH; -DEXAMETHASONE SOD INJ 4 MG/ML VIAL ONE; -DICY10CA12 PO; -EpHEDrine SULFATE 50MG/5ML SYR ONE; -EpHEDrine SULFATE INJ 50 MG/ML AMP IV PRN; -FENTANYL CITRATE INJ 50 MCG/1 ML 2 ML VIAL IV PRN; -FENTANYL CITRATE INJ 50 MCG/1 ML 2 ML VIAL ONE; -GINGKO BILOBA PO; +HEPARIN SOD 5,000 UNIT/0.5 ML VIAL SC SCH; -HYDR-5688 PO; -LACTATED RINGER'S 1000ML 1,000 ML IV SCH; -LIDOCAINE HCL 2% 2 ML VIAL (20MG/ML) ONE; +LR 15ML/HR IV SCH; -MIDAZOLAM HCL 1 MG/ML 2ML VIAL ONE; -NAPR1TAB9 PO; -OMEG10007 PO; -ONDANSETRON INJ 2 MG/ML 2 ML VIAL IV PRN; -ONDANSETRON INJ 2 MG/ML 2 ML VIAL ONE; -OXYCODONE/ACETAMINOPHEN 5-325 TAB PO PRN; -PROPOFOL IV EMULSION 10 MG/ML 20 ML VIAL IV ONE; -RESV100C PO; -SODIUM CHLORIDE 0.9% 1000ML 1,000 ML IV SCH; -VITAMIN B12 PO; -[UNRECOGNIZED DRUG - OTHER] PO; +ceFAZolin 2000MG 2,000 MG/15 ML SYR IV SCH
[2020-11-20] MEDS ORDERED: MIDAZOLAM HCL 1 MG/ML 2ML VIAL ONE (06:55)
[2020-11-20] MEDS ORDERED: fentaNYL citrate 100 MCG/2 ML VIAL ONE ×2 (06:55→08:24)
[2020-11-20] MEDS ORDERED: BUPIVACAINE 0.5 % 5 MG/1 ML MPF 30ML VIAL ONE (07:02)
[2020-11-20] MEDS ORDERED: HYDROmorphone INJ 1 MG/ML SYRINGE IV PRN (07:14)
[2020-11-20] MEDS ORDERED: ATROPINE SULFATE 0.1 MG/ML 10ML SYR IV PRN (07:14)
[2020-11-20] MEDS ORDERED: LABETALOL HCL IV 5 MG/ML 20ML IV PRN (07:14)
[2020-11-20] MEDS ORDERED: ONDANSETRON INJ 2 MG/ML 2 ML VIAL IV PRN (07:14)
--- NOTE | 2020-11-20 07:18 | History & Physical Report ---
Date of Service November 20, 2020 Assessment & Plan (1) Hydronephrosis: Hydronephrosis secondary to UPJ obstruction plan for robotic assisted dismembered pyeloplasty risks, benefits, expectations reviewed History of Present Illness Primary Care Provider: Cortez Davenport MD 70y/o male w/ a right UPJ obstruction and considerable hydronephrosis presenting today for dismembered pyeloplasty to definitively repair his UPJ obstruction Allergies Allergy/AdvReac Type Severity Reaction Status Date / Time aspirin Allergy Mild eye redness Verified 11/20/20 06:36 Home Medications Medication Instructions Recorded Confirmed Type calcium polycarbophil [FiberCon] 1,250 mg PO BID 01/31/19 11/20/20 History amlodipine 5 mg PO QAM 08/10/20 11/20/20 History dicyclomine 10 mg PO QAM 08/28/20 11/20/20 History lisinopril 40 mg tablet 40 mg PO DAILY #90 tab 11/19/20 11/20/20 Rx Past Med/Surg History Medical History Fecal incontinence 2/2 surgical intervention for rectal cancer in 1999. Hearing deficit B/L RIVERA History of rectal cancer dx 1999; treated surgically + chemo/radiation Hx of gout Hydronephrosis Hypertension IBS (irritable bowel syndrome) Obesity Obstruction, urethra MCKINLEY (obstructive sleep apnea) UNTREATED, per PCP patient continues to decline CPAP. Osteoarthritis Surgical History History of colonoscopy History of ileostomy History of rectal surgery s/p neoadjuvant chemoradiation with 55.8Gy and 5 FU completed on 09/10/2000 s/p low anterior resection and diverting ileostomy 10/27/2000 History of reversal of ileostomy Status post PICC central line placement removed Family History Father , At age 54 from [place] Cardiac disorder Myocardial infarction Mother Gallbladder disease Grandfather Cardiac disorder Grandmother Diabetes Aunt Ovarian cancer Grandmother (Maternal) No problems noted. Grandmother (Paternal) Family history of diabetes mellitus Other No family history of adverse response to anesthesia Denies family history of Prostate cancer Breast cancer Colorectal cancer Social History Smoking Status: Former smoker Smoking End Date: 20 YRS AGO; Second Hand Exposure: Yes (IN THE PAST); Do You Dip or Chew Tobacco: No; Tobacco Cessation Education Requested by Patient: No Hx Alcohol Use: Yes Alcohol type: beer Hx Substance Use: No Preferred Language: Occitan Communication Ability: Effective Visual Impairment: No Limitations Hearing Ability: Use of Hearing Aid Book Sewer Required: No Beliefs That Will Affect Care: None marital status: Current Living Situation: Spouse current occupational status: retired current occupation: real estate sales supervisor Feels Safe at Home: Yes Safety Concerns: Feels Safe At This Time Childhood Exposure to Second-Hand Smoke: Yes caffeine: Yes during the past year weight has: increased > 10 lbs Dental Care, Regularly: No Physical Activity Frequency: Does not Exercise Seatbelt Use: always Sunscreen Use: No Assistive Devices: Glasses and Hearing Aid - Bilateral Assistive Devices Comment: UPPER/LOWER PARTIAL PLATE Review of Systems All systems reviewed & are unremarkable except as noted in HPI & below Physical Exam Constitutional: well developed and well nourished Neck: neck nontender Respiratory: normal respiratory effort; no respiratory distress and does not use accessory muscles Cardiovascular: Rate/Rhythm: regular rate Vessels: radial pulses present Extremities: no edema Gastrointestinal (Abdomen): Inspection/Auscultation: abdomen normal to inspection Percussion/Palpation: abdomen soft; abdomen nontender and no guarding Musculoskeletal: Head/Neck/Chest: normocephalic and head atraumatic Extremi ties: extremities normal to inspection Skin: no rashes and no lesions Trauma: no evidence of skin trauma Neurologic: awake; not obtunded Speech / Cognition: normal speech Motor/Sensory: no tremor Psychiatric: Orientation: alert and oriented x 3 Genitourinary: no CVA tenderness Lymphatic: no lymphadenopathy Results & Data ([facility]) Vital Signs (Past 12 Hours) Vital Signs Temp Pulse Resp BP Pulse Ox 11/20/20 06:49 36.6 C 71 20 168/83 H 96
[2020-11-20] MEDS ORDERED: HYDROmorphone INJ 2 MG/ML SYR/VIAL ONE (08:12)
[2020-11-20] MEDS ORDERED: LARYING-O-JET KIT (LTA) ONE (08:17)
[2020-11-20] MEDS ORDERED: GLYCOPYRROLATE 0.2 MG/ML VIAL ONE (08:17)
[2020-11-20] MEDS ORDERED: DEXAMETHASONE SOD INJ 4 MG/ML VIAL ONE (08:17)
[2020-11-20] MEDS ORDERED: LIDOCAINE HCL 2% 2 ML VIAL/AMP(20MG/ML) INFIL ONE (08:17)
[2020-11-20] MEDS ORDERED: PROPOFOL IV EMULSION 10 MG/ML 20 ML VIAL IV ONE (08:17)
[2020-11-20] MEDS ORDERED: PHENYLEPHRINE 100MCG/ML 5ML SYR ONE (08:17)
[2020-11-20] MEDS ORDERED: NEOSTIGMINE METHYLSULFATE 5 MG/5 ML SYR ONE (08:17)
[2020-11-20] MEDS ORDERED: ONDANSETRON INJ 2 MG/ML 2 ML VIAL ONE (08:17)
[2020-11-20] MEDS ORDERED: ePHEDrine sulfate 50 MG/ML SYR ONE (08:17)
[2020-11-20] MEDS ORDERED: ROCURONIUM BROMIDE 10 MG/ML 5 ML VIAL IV ONE ×2 (08:17→09:43)
[2020-11-20] MEDS ORDERED: LABETALOL HCL IV 5 MG/ML 20ML IV ONE (09:04)
[2020-11-20] MEDS ORDERED: SURGICEL ABSORB HEMOSTAT 2IN X 14IN TOP ONE (09:13)
--- NOTE | 2020-11-20 10:49 | Operative Report ---
PG Post Operative Report Pre & Post Diagnosis Operation Date: 11/20/20 07:30 Pre-Op Diagnosis: Right Ureteropelvic Junction obstruction with hydronephrosis Post-Op Diagnosis: Right Ureteropelvic Junction obstruction with hydronephrosis I identified the patient and participated in the time-out.: Yes Procedure Operation Date: 11/20/20 07:30 Actual Procedures p Right Robotic-Assisted Dismembered Laparoscopic Pyeloplasty(Right) - Сергей Landin MD Surgeon Lázaro Landin MD Internal Affairs Commander Gabby Davenport; Tia Vargas Estimated Blood Loss 25 Findings Consistent with Post-Op Diagnosis Specimens UPJ Description of Procedure Patient was identified in the preoperative holding area, appropriate informed consents were reviewed and completed and he was transported to the operating suite. Upon arrival received appropriate preoperative antibiotics in the form of Ancef. Adequate general anesthesia was achieved and he was placed in the left side down right side up lateral decubitus position with the bed flexed. To begin the case I passed a Veress needle into the right upper quadrant. Insufflation to 15 mmHg was achieved without difficulty. I then marked tentative port locations. Of note, he has had significant prior abdominal surgeries and I attempted to avoid port positioning over his prior scars. I began by inserting a 12 mm Visiport with 0 degree lens approximately 5 cm above the umbilicus and at the lateral border of the rectus muscle. From this port I inspected the remainder of the abdomen. He had some scarring around his prior scars, however my port locations all were free of scarring and required no lysis of adhesions. I subsequently placed 4 robotic ports in a linear fashion appr oximately 5 cm lateral to the rectus border with the top port being just under the costal margin and each subsequent port 6 cm below the one above it. An additional 5 mm port was placed on the rectus border at the level of the umbilicus. I then docked the robot. Of note, his renal pelvis is drastically enlarged and in turn this has medialize the colon somewhat. I was able to continue mobilizin g the colon below the kidney as well as medial. I also partially kocherized the duodenum to completely free the renal pelvis. I was able to dissect circumferentially around the UPJ and identified an extremely torturous ureter which was twisting and had a relatively high insertion into the renal pelvis. After freeing adhesions around the ureter to allow to straighten, I turned my attention back to the renal pelvis which was pierced and drained. I then incised the renal pelvis reducing its size and removing some of the redundant tissue. I began to close this pelvis before moving on to complete excision of the UPJ. I utilized a 4-0 running Vicryl suture to achieve this closure. As I neared the UPJ, we incised the ureter approximately 2 cm below the true UPJ. I utilized a combination of standard scissors and Naranjo scissors. The Pott scissors then were utilized to spatulated laterally for approximately 2 cm. I prepositions a suture through the apex of my spatulation and then entirely removed the UPJ by completing my renal pelvis incision. I began my reapproximation by suturing this preplaced stitch from the ureter into the appropriate location on the renal pelvis. This anchored the ureter back to the renal pelvis and I was able to continue the posterior reconstruction followed by the beginning of an anterior side reconstruction. Before completing the reanastomosis, I placed a 6 Micronesian by 26 cm stent. Stent positioning occurred relatively easily without any resistance. I tucked the proximal curl of the stent into the renal pelvis before continuing my closure of the anterior aspect of the ureter and ultimately the superior aspect. After the ureter and renal pelvis were entirely reanastomosed. I inspected to ensure no gaps. Hemostasis was excellent. The robot was undocked. A IAN drain was guided into the right lateral pericolic gutter. This drain was sutured in place. All other incisions were closed with 4-0 Monocryl to the skin. The 12 mm port was closed with a 0 Vicryl through the fascia. All incisions were infiltrated with half percent Marcaine. Dermabond was placed over all incisions and the case was concluded. He was extubated and taken to the PACU in stable condition. There were no complications. Gabby Davenport and Tia Vargas assisted from incision to closure. I attest to the content of the Intraoperative Record and any orders documented therein. Any exceptions are noted below.
--- NOTE | 2020-11-20 11:08 | XRay Report ---
KUB HISTORY: Status post placement of a right ureteral stent confirm stent position COMPARISON: CT abdomen and pelvis 06/01/2020 FINDINGS: Gas-filled stomach. Mildly dilated air-filled loops of small bowel are noted within the abd omen measuring up to 3.2 cm transversely. Surgical drainage catheter projects over the lateral right abdomen. Surgical clips project over the left hemipelvis. Numerous pelvic basin calcifications sugges t probable phleboliths. Right ureteral stent is in place with proximal portion of the level of L2-L3 within the expected location of the renal pelvis, the distal portion of the stent terminates the left of midline in the expected location of the urinary bladder. No renal calculi. No ureteral calculi. No pneumoperitoneum or pneumatosis. Degenerative changes are noted within the spine, pelvis and hips. No fracture. IMPRESSION: 1. Right-sided ureteral stent appears to be in satisfactory positioning. 2. No definite renal or ureteral calculi. 3. Mildly dilated air-filled loops of small bowel in the midabdomen may reflect ileus. 4. Surgical catheter projects over the lateral right midabdomen. ACT 112: Negative or not required by law. The above report was generated using voice recognition software. It may contain grammatical, syntax o r spelling errors. Electronically signed by: Kwame Mcneill M.D. 11/20/2020 11:06 AM
[2020-11-20] MEDS ORDERED: ACETAMINOPHEN 500 MG TAB PO PRN (11:44)
[2020-11-20] MEDS ORDERED: MoRPHine SULFATE 2 MG/ML CARP IV PRN (11:44)
[2020-11-20] MEDS ORDERED: KETOROLAC TROMETHAMINE 15 MG/ML VIAL IV PRN (11:44)
[2020-11-20] MEDS ORDERED: oxyCODONE/ACETAMINOPHEN 5mg/325mg TAB PO PRN ×2 (11:44)
[2020-11-20] MEDS: LACTATED RINGER'S 1,000 ML IV SCH ×2 (11:54→22:47)
[2020-11-20 12:04] LABS: Basophils # (auto) 0.02 K/uL (0-0.2); Basophils % (auto) 0.2 %; Eosinophils # (auto) 0.04 K/uL (0-0.5); Eosinophils % (auto) 0.4 %; Hematocrit (blood only) 41.4 % (42-52); Hemoglobin 13.9 g/dL (14.0-18.0); Immature Granulocytes # (auto) 0.06 K/uL (0.00-0.02); Immature Granulocytes % (auto) 0.6 %; Lymphocytes # (auto) 0.92 K/uL (1.2-3.4); Lymphocytes % (auto) 9.3 %; Mean Corpuscular Hemoglobin 30.1 pg (25-34); Mean Corpuscular Volume 89.6 fL (80-100); Mean Platelet Volume 10.9 fL (7.4-10.4); Monocytes # (auto) 0.15 K/uL (0.11-0.59); Monocytes % (auto) 1.5 %; Neutrophils # (auto) 8.73 K/uL (1.4-6.5); Platelet Count 181 K/uL (130-400); RDW Coefficient of Variation 13.2 % (11.5-14.5); RDW Standard Deviation 43.1 fL (36.4-46.3); Red Blood Count 4.62 M/uL (4.7-6.1); White Blood Count 9.92 K/uL (4.8-10.8)
[2020-11-20 12:22] LABS: BUN Creatinine Ratio 13.1 (10-20); Creatinine Clr Calc Pharmacy 51.3 ml/min; Est GFR (African American) 49.9
[2020-11-20 12:33] LABS: Mean Corpuscular Hgb Conc 33.6 g/dL (32-36)
--- NOTE | 2020-11-20 13:18 | Anesthesiology Progress Note ---
Date of Service November 20, 2020 Anesthesia Post Procedure Vital Signs Vital Signs: Temp Pulse Pulse Resp BP BP Pulse Ox 11/20/20 12:31 36.8 C 89 20 137/65 96 11/20/20 12:02 88 16 140/72 95 11/20/20 11:20 37.0 C 78 13 159/66 H 96 11/20/20 11:10 37.0 C 80 16 145/70 H 97 11/20/20 11:00 76 11 L 159/77 H 97 11/20/20 10:50 78 12 154/86 H 94 11/20/20 10:40 77 10 L 133/72 92 11/20/20 10:34 36.8 C 81 14 147/70 H 95 11/20/20 06:49 36.6 C 71 20 168/83 H 96 Transfer of Care Handoff Completed per policy Notes Mental Status: alert / awake / arousable Patient Amnestic to Procedure: Yes Nausea / Vomiting: adequately controlled Pain: adequately controlled Airway Patency, RR, SpO2: stable & adequate BP & HR: stable & adequate Hydration State: stable & adequate Anesthetic Complications: no major complications apparent
[2020-11-20] MEDS: DICYCLOMINE HCL 10 MG CAP PO SCH (14:38)
[2020-11-20] MEDS: ceFAZolin 1000MG 1,000 MG/7.5 ML SYR IV SCH (15:35)
[2020-11-20] MEDS: HEPARIN SOD 5,000 UNIT/0.5 ML VIAL SQ SCH (20:35)
[2020-11-20] MEDS: CALCIUM POLYCARBOPHIL 625MG TAB PO SCH (20:35)
[2020-11-21] MEDS: ceFAZolin 1000MG 1,000 MG/7.5 ML SYR IV SCH (00:39)
[2020-11-21] MEDS: LACTATED RINGER'S 1,000 ML IV SCH ×2 (05:00→06:45)
[2020-11-21 06:43] LABS: Basophils # (auto) 0.01 K/uL (0-0.2); Basophils % (auto) 0.1 %; Eosinophils # (auto) 0.01 K/uL (0-0.5); Eosinophils % (auto) 0.1 %; Hematocrit (blood only) 37.7 % (42-52); Hemoglobin 12.8 g/dL (14.0-18.0); Immature Granulocytes # (auto) 0.04 K/uL (0.00-0.02); Immature Granulocytes % (auto) 0.3 %; Lymphocytes # (auto) 1.24 K/uL (1.2-3.4); Lymphocytes % (auto) 9.3 %; Mean Corpuscular Hemoglobin 30.3 pg (25-34); Mean Corpuscular Volume 89.3 fL (80-100); Mean Platelet Volume 10.9 fL (7.4-10.4); Monocytes # (auto) 1.27 K/uL (0.11-0.59); Monocytes % (auto) 9.5 %; Neutrophils # (auto) 10.81 K/uL (1.4-6.5); Neutrophils % (auto) 80.7 %; Platelet Count 177 K/uL (130-400); RDW Coefficient of Variation 13.2 % (11.5-14.5); RDW Standard Deviation 42.9 fL (36.4-46.3); Red Blood Count 4.22 M/uL (4.7-6.1); White Blood Count 13.38 K/uL (4.8-10.8)
[2020-11-21 07:13] LABS: BUN Creatinine Ratio 15.8 (10-20); Calcium 8.9 mg/dl (8.5-10.1); Creatinine Clr Calc Pharmacy 66.2 ml/min; Est GFR (African American) 67.8; Est GFR (Non-African American) 58.5; Potassium 4.2 mmol/L (3.5-5.1)
--- NOTE | 2020-11-21 07:46 | Urology Progress Note ---
Date of Service November 21, 2020 Assessment & Plan (1) Hydronephrosis: POD#1 s/p dismembered pyeloplasty - doing very well - advance diet HL IVF mcdowell out --> HOMER out around lunch presuming no significant increase in drain output d/c home this afternoon Admission and Anticipated Discharge Date Admission Date: November 20, 2020 Subjective did great overnight already feels he has much less right sided pressure, much less back discomfort no pain ambulating urine cleared low HOMER output Physical Exam Physical Exam: incisions appropriate homer serosang urine clear Results & Data ([facility]) Vital Signs (Past 12 Hours) Vital Signs Temp Pulse Resp BP Pulse Ox 11/21/20 03:25 36.7 C 79 19 117/70 96 11/20/20 23:23 36.8 C 90 18 128/72 96 PG Care Time/CCT Total # of Minutes Spent Total Time Spent with Patient: Total time spent is greater than 50% in coordination of care (as documented) at patient's floor/unit and/or counseling patient: Coding Level of Care Code 16490 Subseq Hosp Care Lvl 2 Diagnoses Hydronephrosis N13.30
[2020-11-21] MEDS: HEPARIN SOD 5,000 UNIT/0.5 ML VIAL SQ SCH (08:20)
[2020-11-21] MEDS: CALCIUM POLYCARBOPHIL 625MG TAB PO SCH (08:21)
[2020-11-21] MEDS: DICYCLOMINE HCL 10 MG CAP PO SCH (08:21)
--- NOTE | 2020-11-21 08:38 | Anesthesiology Progress Note ---
Date of Service November 21, 2020 Anesthesia Post Procedure Vital Signs Vital Signs: Temp Pulse Pulse Resp BP BP Pulse Ox 11/21/20 07:55 36.7 C 63 16 152/76 H 96 11/21/20 03:25 36.7 C 79 19 117/70 96 11/20/20 23:23 36.8 C 90 18 128/72 96 11/20/20 19:18 36.7 C 91 H 18 146/70 H 95 11/20/20 14:17 100 H 16 107/61 95 11/20/20 13:36 97 H 16 125/61 94 11/20/20 12:31 36.8 C 89 20 137/65 96 11/20/20 12:02 88 16 140/72 95 11/20/20 11:35 36.9 C 85 16 142/65 H 95 11/20/20 11:20 37.0 C 78 13 159/66 H 96 11/20/20 11:10 37.0 C 80 16 145/70 H 97 11/20/20 11:00 76 11 L 159/77 H 97 11/20/20 10:50 78 12 154/86 H 94 11/20/20 10:40 77 10 L 133/72 92 11/20/20 10:34 36.8 C 81 14 147/70 H 95 Pain Intensity Abdomen: Pain Intensity: 4 Notes Mental Status: alert / awake / arousable and participated in evaluation Patient Amnestic to Procedure: Yes Nausea / Vomiting: see Notes below Pain: adequately controlled Airway Patency, RR, SpO2: stable & adequate BP & HR: stable & adequate Hydration State: stable & adequate Anesthetic Complications: no major complications apparent and Pt Satisfied with anesthetic care
[2020-11-21] MEDS ORDERED: lisinopril 40 MG TAB PO SCH (09:00)
[2020-11-21] MEDS ORDERED: amLODIPine BESYLATE 5 MG TAB PO SCH (09:00)
--- NOTE | 2020-11-21 13:04 | Discharge Summary ---
Date of Service November 21, 2020 Admission HPI Per Admitting Provider 70y/o male w/ a right UPJ obstruction and considerable hydronephrosis presenting today for dismembered pyeloplasty to definitively repair his UPJ obstruction Admission Exam Per Admitting Provider Constitutional: well developed and well nourished Neck: neck nontender Respiratory: normal respiratory effort; no respiratory distress and does not use accessory muscles Cardiovascular: Rate/Rhythm: regular rate Vessels: radial pulses present Extremities: no edema Gastrointestinal (Abdomen): Inspection/Auscultation: abdomen normal to inspection Percussion/Palpation: abdomen soft; abdomen nontender and no guarding Musculoskeletal: Head/Neck/Chest: normocephalic and head atraumatic Extremities: extremities normal to inspection Skin: no rashes and no lesions Trauma: no evidence of skin trauma Neurologic: awake; not obtunded Speech / Cognition: normal speech Motor/Sensory: no tremor Psychiatric: Orientation: alert and oriented x 3 Genitourinary: no CVA tenderness Lymphatic: no lymphadenopathy Principal Diagnosis Hydronephrosis Discharge Exam Constitutional well developed, well nourished and + obese; no acute distress and not ill appearing Respiratory normal respiratory effort and able to speak in complete sentences; no respiratory distress and no labored breathing Cardiovascular Extremities: no pedal edema Gastrointestinal (Abdomen) Inspection/Auscultation: abdomen normal to inspection; abdomen not distended Musculoskeletal Head/Neck/Chest: normocephalic and head atraumatic Extremities: extremities normal to inspection Gait: normal gait Skin no rashes, warm and dry Neurologic moves all extremities and awake Psychiatric A+Ox3, euthymic affect Genitourinary no CVA tenderness Discharge Data Allergies Allergy/AdvReac Type Severity Reaction Status Date / Time aspirin Allergy Mild eye redness Verified 11/20/20 06:36 Procedures Performed Operation Date: 11/20/20 07:30 Actual Procedures p Right Robotic-Assisted Dismembered Laparoscopic Pyeloplasty(Right) - Сергей Landin MD Hospital Course (1) Hydronephrosis: POD#1 s/p dismembered pyeloplasty with Dr. Landin Tolerated procedure well, no complications. No issues overnight. No pain. Afebrile, hemodynamically stable, creatinine 1.24. Tolerating diet. +BM today. Doty catheter removed POD1 in AM, patient voiding without difficulty after Doty removal. IAN with minimal drain output. IAN will be removed prior to discharge. Total Time Total Time Spent Total Time Spent (In Minutes): 25 Total Time Includes: Examination of the Patient, Discharge Planning, Medication Reconciliation and Communication With Other Providers Discharge Plan Discharge Items Patient Disposition: Home - Self-Care Reason For Visit: Hydronephrosis; Z01.818 Discharge Diagnosis: Hydronephrosis Activity: Per Instructions section Lifting: No more than 25 pounds Bathing Comment: Okay to shower in 1 day, no tub bath or soaking Sexual Activity: Wait until after follow-up appointment Exercise/Sports: Wait until after follow-up appointment Driving/Machine Use: No driving while taking prescription pain medication Non-emergency contact: Surgeon and Urologist Call non-emergency contact if: your pain is not controlled, your pain is w orsening, your pain is unusual for you, your pain is concerning for you, you have a fever, your temperature is above 101, your wound has increased redness, your wound has increased drainage and your wound pain has increased Follow-up/Referrals: Cortez Davenport MD [Primary Care Provider] - 11/26/20 1:45 pm (WILL SEE DR. VITALE) Сергей Landin MD [Physician] - 12/03/20 8:00 am Diet: Regular Addtl Attending Provider Instructions: Please take all medications as prescribed and keep all follow-ups as scheduled. Please call our office at [phone] with any questions, concerns or need to reschedule appointments for any reason. We are happy to assist you. Recovering at home: We recommend having someone with you for the first few days after surgery to help care for you. It is okay to shower tomorrow. Please avoid swimming, bathing or using hot tub until incisions are well healed. Avoid driving until you are not requiring pain medication any further. Walk at least a few times a day. Increase your distance, as you feel able. Stairs in your home are okay. Please avoid strenuous or sexual activity until your follow-up. We recommend using stool softener (i.e. Colace) to prevent constipation and straining, especially the first two weeks post operatively. Call [facility] at [phone] if you experience: Chest pain or trouble breathing (call 605 or go to the hospital). Fever of 101F or higher Symptoms of infection at incision site, including redness or swelling, warmth, or bad-smelling drainage If you have catheter, and you notice: o Bloody urine or drainage that is dark red or has large clots (Please remember a small amount of blood is normal) o No drainage from the catheter for more than 6 hours o The catheter comes out of your bladder Pain that is not controlled with medicines Pending Studies at Discharge: Yes Studies:: Pathology Stand-Alone Forms: [facility], Smoking Cessation Medications and DC Order Prescriptions: New docusate sodium [Colace] 100 mg capsule 100 mg PO BID Qty: 60 RF: 0 oxycodone-acetaminophen [Percocet] 5-325 mg tablet 1 tab PO TID PRN (Reason: pain) Qty: 7 RF: 0 Continued lisinopril 40 mg tablet 40 mg PO DAILY Qty: 90 RF: 3 calcium polycarbophil [FiberCon] 625 mg Tablet 1,250 mg PO BID RF: 0 amlodipine 5 mg tablet 5 mg PO QAM RF: 0 dicyclomine 10 mg Capsule 10 mg PO QAM RF: 0 Discharge Orders: Discharge Order (Routine); Ordered 11/21/20 Ordered By: Gabby Davenport Admission Data Admit Date/Time: 11/20/20 10:41 Attending Provider: Сергей Landin Admit Provider: Сергей Landin Primary Care Provider: Cortez Davenport Other Interventions: Discharge Summary Assessment (RN) Last Done: 11/21/20 12:27 Coding Level of Care Code D/C Day Management <30 mins Diagnoses Hydronephrosis N13.30
[2020-11-21] MEDS ORDERED: LOPERAMIDE HCL 2 MG CAP PO ONE (14:00)
== END 2020-11-21 14:33 | disposition home or self-care (01) | DRG 661 ==
LOC: ASU 06:04 → 3W 10:41